=== PATIENT | male | born 2000 | race Two or more races ===

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

== ENCOUNTER → 2019-06-07 | Outpatient (CLI) | payer BC ==
[~2019-06-07] MED LIST changes: +ANTIFUNGAL; +SERT50TA28 PO
== END | disposition home or self-care (01) ==
LOC: CFH 07:23
PROVIDERS: ATTEND Nurse Practitioner Gerontology
DX: R10.9 Unspecified abdominal pain (principal)
CPT/HCPCS: 74018

== ENCOUNTER 2019-08-08 14:03 | Emergency (ER) | payer BC ==
[~2019-08-08] VITALS: Ht 172.7 cm; Wt 73.1 kg
--- NOTE | 2019-08-08 16:31 | NUR ---
educational manager: Pt to ED room 16 from lobby at this time
--- NOTE | 2019-08-08 16:57 | NUR ---
PT TO ROOM 16 W/ PARENTS FOR C/O BARRETO ON/OFF X 1 WEEK. PER FAMILY HAVE BEEN DEALING W/ BARRETO SX FOR A WHILE. HAS BEEN SEEN MULTIPLE TIMES FOR IT BY ENT. WAS ORIGINALLY TREATED FOR MIGRAINE BARRETO W/O RELIEF, DX W/ VERTIGO W/O RELIEF. PARENTS CALLED ENT TODAY FOR BARRETO AND WERE TOLD TO COME TO ED FOR CT OR MRI TO R/O TUMOR. PT RESTING ON STACI. NADN. HILL.
[2019-08-08] MEDS ORDERED: KETOROLAC 30 MG/1 ML IVPush ONE (17:30)
[2019-08-08] MEDS ORDERED: PROMETHAZINE 25 MG/ML, 1ML IM ONE (17:30)
[2019-08-08] MEDS ORDERED: SODIUM CHLORIDE FLUSH 10ML SYR IVF ONE (17:30)
[2019-08-08] MEDS ORDERED: SODIUM CHLORIDE 0.9% 1,000ML IVBOLUS ONE (17:30)
[2019-08-08] MEDS ORDERED: KETOROLAC 30 MG/1 ML ONE (17:48)
[2019-08-08] MEDS ORDERED: PROMETHAZINE 25 MG/ML, 1ML ONE (17:48)
--- NOTE | 2019-08-08 17:53 | NUR ---
PT RESTING ON GURNEY. NADN. HILL.
[2019-08-08 18:38] VITALS: BP 122/75
--- NOTE | 2019-08-08 18:39 | NUR ---
PT RESTING ON GURTOD. CAMILON. VSS. MOM STATES ERP SPOKE W/ DR. ALEXANDER WHICH IS THE INCORRECT ENT FOR PT. PT FAMILY REQUESTING ERP SPEAK W/ DR. AYALA. ERP NOTIFIED.
--- NOTE | 2019-08-08 18:45 | NUR ---
REPORT RECEIVED FROM AVRIL LEMUS. PLAN OF CARE DISCUSSED.
== END 2019-08-08 19:22 | disposition home or self-care (01) ==
LOC: ED 18:27
DX: R51 Headache (principal); R11.2 Nausea with vomiting, unspecified
CPT/HCPCS: 70450; 96361; 96372; 96374; 99284; J1885; J2550; J7030

== ENCOUNTER 2020-01-30 19:33 | Emergency (ER) | payer BC ==
[~2020-01-30] VITALS: Ht 172.7 cm; Wt 75.3 kg
[2020-01-30 19:48] VITALS: BP 117/71
--- NOTE | 2020-01-30 21:06 | NUR ---
Assumed care at this time, Pt sent by pediatric neurologist for COVID-19 test. Test completed by madi awaiting further orders.
--- NOTE | 2020-01-30 21:53 | NUR ---
Patient/Caregiver given discharge instructions and they have confirmed that they understand the instructions. Patient ambulatory with steady gait.
== END 2020-01-30 23:38 ==
LOC: ED 21:30
DX: G43.909 Migraine, unspecified, not intractable, without status migrainosus (principal); Z20.828 Contact with and (suspected) exposure to other viral communicable diseases
CPT/HCPCS: 36415; 87635; 93005; 99283; 99284

== ENCOUNTER 2021-01-23 19:26 | Emergency (ER) | payer BC ==
[~2021-01-23] VITALS: Ht 172.7 cm; Wt 75.8 kg
--- NOTE | 2021-01-23 20:29 | NUR ---
Pt ambulatory to room with steady gait at this time.
[2021-01-23 20:30] LABS: BASOPHILS % (AUTO) 1 % (0-1); EOSINOPHILS % (AUTO) 1 % (1-7); LYMPHOCYTES % (AUTO) 23 % (22-44); MEAN CORPUSCULAR HEMOGLOBIN 30.9 pg (27.5-34.5); MEAN CORPUSCULAR HGB CONC 34.1 g/dL (33.2-36.2); MEAN PLATELET VOLUME 8.5 fL (7.4-10.4); MONOCYTES % (AUTO) 9 % (2-9); NEUTROPHILS % (AUTO) 67 % (42-75); PLATELET COUNT 247 x10^3/uL (130-400); RED BLOOD COUNT 5.06 x10^6/uL (4.38-5.82); RED CELL DISTRIBUTION WIDTH 12.8 % (9.4-14.8)
[2021-01-23 20:39] LABS: ALANINE AMINOTRANSFERASE 49 U/L (12-78); ALBUMIN 3.9 g/dL (3.4-5.0); ANION GAP 5 mmol/L (5-15); CALCIUM 8.8 mg/dL (8.5-10.1); CHLORIDE 104 mmol/L (98-107); CREATININE 0.99 mg/dL (0.7-1.3)
[2021-01-23 20:41] LABS: MICROSCOPIC INDICATED
[2021-01-23 20:41] LABS: ALKALINE PHOSPHATASE 92 U/L (45-117); BILIRUBIN,TOTAL 0.5 mg/dL (0.2-1.0)
--- NOTE | 2021-01-23 20:48 | NUR ---
Pt has hx of kidney stone and states these symptoms are similar but this time it's less painful. Pt states he had pain about 1 month ago for 2 weeks, resolved and now it's back, the pain comes and goes, worse on the L side.
--- NOTE | 2021-01-23 20:59 | NUR ---
RECIEVED REPORT FROM JAYLAN MACKENZIE. TRANSFER OF CARE.
[2021-01-23] MEDS ORDERED: MAGNESIUM CITRATE 300ML ORAL SOL PO ONE (21:30)
[2021-01-23] MEDS ORDERED: MAGNESIUM CITRATE 300ML ORAL SOL ONE (21:33)
[2021-01-23 21:42] VITALS: BP 110/66
--- NOTE | 2021-01-23 22:09 | NUR ---
Patient/Caregiver given discharge instructions and they have confirmed that they understand the instructions. Patient ambulatory with steady gait. NAD, all questions answered appropriately, denies additional needs at this time. No personal belongings left in room after discharge.
== END 2021-01-23 22:11 | disposition home or self-care (01) ==
LOC: ED 21:57
DX: K59.00 Constipation, unspecified (principal); R10.12 Left upper quadrant pain; R10.30 Lower abdominal pain, unspecified
CPT/HCPCS: 36415; 74021; 80053; 81001; 83690; 85025; 87086; 99284